=== PATIENT | male | born 1945 | race Caucasian/White ===

== ENCOUNTER 2024-03-02 06:44 | Inpatient (IN) ==
--- NOTE | 2024-03-02 07:16 | Emergency Department Note ---
ED Provider Note History of Present Illness Chief Complaint: Abdominal Pain Stated Complaint: ABD PAIN Time Seen by Provider: 03/02/24 06:58 Source: patient Mode of arrival: ambulatory Limitations: no limitations This patient is a 78-year-old male who presents emergency department for evaluation of abdominal pain. Patient is from [place] and is in the area with friends hunting. He states that he woke up 3 hours ago due to pain in the right lower abdomen. Pain came on fairly suddenly and woke him up from sleep. He states pain is now more generalized throughout the abdomen. Pain is worse with movements. Rates his current discomfort a 9/10. Denies fevers but reports some chills. He had 1 small episode of diarrhea this morning and has had some nausea and dry heaving. He denies any vomiting, chest pain, urinary symptoms. He states that he felt okay when he went to bed last night. Denies any pain over the past few days. Denies any prior episodes of similar symptoms. 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 Home Medications Medication Instructions Recorded Confirmed Type allopurinol 300 mg tablet 300 mg PO QAM 03/02/24 03/02/24 History amlodipine 10 mg tablet 10 mg PO HS 03/02/24 03/02/24 History clopidogrel 75 mg tablet (Plavix) 75 mg PO QAM 03/02/24 03/02/24 History losartan 100 mg tablet 100 mg PO QAM 03/02/24 03/02/24 History rosuvastatin 5 mg tablet 5 mg PO [id number] 03/02/24 03/02/24 History Allergies Allergy/AdvReac Type Severity Reaction Status Date / Time No Known Allergies Allergy Unverified 03/02/24 08:12 Past Med/Surg History Problem List (Updated 03/02/24 @ 09:49 by Ryan Gonzalez DO) Chronic renal failure (CRF), stage 3a Paroxysmal atrial fibrillation Sinus bradycardia, chronic Small bowel obstruction due to postoperative adhesions Hypertension Presence of Watchman left atrial appendage closure device Medical History Multiple renal calculi Benign tumor of kidney Surgical History History of ureteroscopy History of lithotripsy History of right nephrectomy Social History (Reviewed 03/02/24 @ 09:46 by BRIA Stock Smoking Status: Never smoker Preferred Language: Japanese Feels Safe at Home: Yes Physical Exam Vital Signs Vital Signs - 24 hr 03/02/24 06:48 03/02/24 07:08 03/02/24 07:20 Temperature 36.5 C Temperature Source Temporal Artery Scan Pulse Rate 58 L 52 L Pulse Rate [Apical] Pulse Rate from SpO2 Sensor 50 L Pulse Rhythm Regular Pulse Rhythm [Apical] Pulse Strength Normal Respiratory Rate 18 12 Respiratory Effort / Characteristics Non-Labored Spontaneous Respiratory Depth Normal Respiratory Pattern Regular Blood Pressure 172/87 H 160/86 H Blood Pressure [Left Arm] Blood Pressure Mean 115 110 Blood Pressure Mean [Left Arm] Blood Pressure Position Sitting Blood Pressure Position [Left Arm] Pulse Oximetry 98 96 Oxygen Delivery Method Room Air Room Air Oxygen Flow Rate Sepsis Recent Fever Within 48 Hours No Sepsis New/Unexplained Change in Mental Status No Sepsis Action Taken by Nursing No Action Required 03/02/24 07:25 03/02/24 07:30 03/02/24 08:00 Temperature Temperature Source Pulse Rate 54 L 60 57 L Pulse Rate [Apical] Pulse Rate from SpO2 Sensor 0 L Pulse Rhythm Regular Pulse Rhythm [Apical] Pulse Strength Respiratory Rate 16 12 15 Respiratory Effort / Characteristics Respiratory Depth Respiratory Pattern Blood Pressure 159/87 H 163/88 H Blood Pressure [Left Arm] Blood Pressure Mean 113 113 Blood Pressure Mean [Left Arm] Blood Pressure Position Blood Pressure Position [Left Arm] Pulse Oximetry 96 95 95 Oxygen Delivery Method Room Air Room Air Room Air Oxygen Flow Rate Sepsis Recent Fever Within 48 Hours Sepsis New/Unexplained Change in Mental Status Sepsis Action Taken by Nursing 03/02/24 08:30 03/02/24 09:00 03/02/24 09:33 Temperature 36.6 C Temperature Source Oral Pulse Rate 58 L 57 L 55 L Pulse Rate [Apical] Pulse Rate from SpO2 Sensor Pulse Rhythm Pulse Rhythm [Apical] Pulse Strength Respiratory Rate 13 16 14 Respiratory Effort / Characteristics Respiratory Depth Respiratory Pattern Blood Pressure 149/91 H 162/85 H 140/90 Blood Pressure [Left Arm] Blood Pressure Mean 133 126 Blood Pressure Mean [Left Arm] Blood Pressure Position Blood Pressure Position [Left Arm] Pulse Oximetry 92 94 92 Oxygen Delivery Method Room Air Room Air Room Air Oxygen Flow Rate Sepsis Recent Fever Within 48 Hours Sepsis New/Unexplained Change in Mental Status Sepsis Action Taken by Nursing 03/02/24 10:44 03/02/24 10:50 03/02/24 11:00 Temperature 36.3 C L Temperature Source Temporal Artery Scan Pulse Rate Pulse Rate [Apical] 69 67 62 Pulse Rate from SpO2 Sensor Pulse Rhythm Pulse Rhythm [Apical] Regular Regular Regular Pulse Strength Respiratory Rate 14 21 14 Respiratory Effort / Characteristics Non-Labored Spontaneous Non-Labored Spontaneous Non-Labored Spontaneous Respiratory Depth Normal Normal Normal Respiratory Pattern Regular Regular Regular Blood Pressure Blood Pressure [Left Arm] 131/93 160/94 H 161/87 H Blood Pressure Mean Blood Pressure Mean [Left Arm] 105 116 111 Blood Pressure Position Blood Pressure Position [Left Arm] Semi-fowlers Semi-fowlers Semi-fowlers Pulse Oximetry 97 97 95 Oxygen Delivery Method Oxymask Oxymask Oxymask Oxygen Flow Rate 9 9 5 Sepsis Recent Fever Within 48 Hours Sepsis New/Unexplained Change in Mental Status Sepsis Action Taken by Nursing 03/02/24 11:10 03/02/24 11:20 Temperature Temperature Source Pulse Rate Pulse Rate [Apical] 68 64 Pulse Rate from SpO2 Sensor Pulse Rhythm Pulse Rhythm [Apical] Regular Regular Pulse Strength Respiratory Rate 15 14 Respiratory Effort / Characteristics Non-Labored Spontaneous Non-Labored Spontaneous Respiratory Depth Normal Normal Respiratory Pattern Regular Regular Blood Pressure Blood Pressure [Left Arm] 169/80 H 144/82 H Blood Pressure Mean Blood Pressure Mean [Left Arm] 109 102 Blood Pressure Position Blood Pressure Position [Left Arm] Semi-fowlers Semi-fowlers Pulse Oximetry 94 93 Oxygen Delivery Method Oxymask Nasal Cannula Oxygen Flow Rate 5 2 Sepsis Recent Fever Within 48 Hours Sepsis New/Unexplained Change in Mental Status Sepsis Action Taken by Nursing VITALS: Vitals are noted on the nurse's note and reviewed by myself. GENERAL: This is a 78-year-old male, uncomfortable appearing, slightly tremulous. SKIN: The skin was without rashes. EYES: No scleral icterus MOUTH: Mucous membranes moist. HEART: Regular rate and rhythm without murmurs gallops or rubs. LUNGS: Clear to auscultation bilaterally without wheezes, rales or rhonchi. ABDOMEN: Positive bowel sounds x 4. Moderate tenderness throughout the abdomen, most pronounced in the right lower quadrant with positive guarding. NEURO: Patient was alert and oriented. Course Consultations Consultation #1: Dr. Oglesby - general surgery General surgery was consulted and will evaluate the patient. He did request that I also consult the hospitalist service for admission. Time: 08:22 Consultation #2: Dr. Evaristo Pierson Hospitalist Hospitalist service was consulted for admission at the request of the general surgeon. Time: 08:35 Administered Medications Droperidol (Droperidol 5 Mg/2 Ml Vial) 0.625 mg IV ONCE PRN PRN Reason: PACU Use Only for Nausea Stop: 03/02/24 18:01 Last Admin: 03/02/24 11:02 Dose: 0.625 mg Documented By: TASH Discontinued Medications Bupivacaine HCl/Epinephrine Bitart (Bupivacaine/Epinephrine 0.5% Mpf 1:200,000 30 Ml Vial) Confirm Administered Dose 30 ml .ROUTE .STEcopol-MED ONE Stop: 03/02/24 10:19 Last Admin: 03/02/24 10:35 Dose: 30 ml Documented By: THIEN Hydromorphone HCl (Hydromorphone Inj 0.5 Mg/0.5 Ml Syr) 0.5 mg IV NOW STA Stop: 03/02/24 07:56 Last Admin: 03/02/24 08:00 Dose: 0.5 mg Documented By: TAIWO Hydromorphone HCl (Hydromorphone Inj 0.5 Mg/0.5 Ml Syr) 0.5 mg IV NOW STA Stop: 03/02/24 09:12 Last Admin: 03/02/24 09:16 Dose: 0.5 mg Documented By: TAIWO Hydromorphone HCl (Hydromorphone Inj 1 Mg/Ml Syringe) 0.25 mg IV Q5M PRN PRN Reason: PACU Use Only-Pain Stop: 03/02/24 18:01 Last Admin: 03/02/24 11:17 Dose: 0.25 mg Documented By: Admin: 03/02/24 11:12 Dose: 0.25 mg Documented By: Admin: 03/02/24 11:00 Dose: 0.25 mg Documented By: Admin: 03/02/24 10:52 Dose: 0.25 mg Documented By: TASH Hydromorphone HCl (Hydromorphone Inj 1 Mg/Ml Syringe) Confirm Administered Dose 1 mg .ROUTE .STK-MED ONE Stop: 03/02/24 10:52 Last Admin: 03/02/24 10:54 Dose: Not Given Documented By: TASH Sodium Chloride (Nss) 500 mls @ 999 mls/hr IV .Q31M ONE Stop: 03/02/24 07:42 Last Infusion: 03/02/24 08:01 Dose: Infused Documented By: Admin: 03/02/24 07:22 Dose: 999 mls/hr Documented By: TAIWO Cefazolin Sodium (Ancef 2000mg) 2,000 mg in 15 mls @ 3.75 mls/min IV PREOP ONE; Protocol Stop: 03/02/24 10:17 Last Admin: 03/02/24 10:16 Dose: 3.75 mls/min Documented By: THIEN Morphine Sulfate (Morphine Sulfate 10 Mg/Ml Carp/Vial) 6 mg IV NOW STA Stop: 03/02/24 07:13 Last Admin: 03/02/24 07:21 Dose: 6 mg Documented By: TIAWO Ondansetron HCl (Ondansetron Inj 2 Mg/Ml 2 Ml Vial) 4 mg IV NOW STA Stop: 03/02/24 07:13 Last Admin: 03/02/24 07:21 Dose: 4 mg Documented By: TAIWO Ondansetron HCl (Ondansetron Inj 2 Mg/Ml 2 Ml Vial) 4 mg IV NOW STA Stop: 03/02/24 10:57 Last Admin: 03/02/24 11:04 Dose: Not Given Documented By: TASH Ondansetron HCl (Ondansetron Inj 2 Mg/Ml 2 Ml Vial) Confirm Administered Dose 4 mg .ROUTE .STK-MED ONE Stop: 03/02/24 10:58 Last Admin: 03/02/24 10:58 Dose: Not Given Documented By: TASH Medical Decision Making Differential Diagnosis Appendicitis, testicular torsion, infections, diverticulitis, UTI, obstruction, mesenteric ischemia, aortic pathology, inflammatory bowel disease, renal colic, PUD, pancreatitis, biliary pathology, hernia, volvulus, constipation, as well as other pathologies. Laboratory Data Attestation: I reviewed the patient's lab results. 03/02/24 07:03 03/02/24 07:03 Lab Results 03/02/24 03/02/24 Range/Units 07:03 07:57 WBC 8.21 (4.8-10.8) K/ul RBC 5.42 (4.70-6.10) M/uL Hgb 16.3 (14.0-18.0) g/dl Hct 48.1 (42.0-52.0) % MCV 88.7 (80.0-100.0) fL MCH 30.1 (25.0-34.0) pg MCHC 33.9 (32.0-36.0) g/dL RDW Std Deviation 46.1 (36.4-46.3) fL RDW Coeff of Sushil 14.3 (11.5-14.5) % Plt Count 205 (130-400) K/uL MPV 11.2 (9.4-12.4) fL Immature Gran % (Auto) 0.2 % Neut % (Auto) 75.9 % Lymph % (Auto) 16.0 % [place] % (Auto) 6.0 % Eos % (Auto) 1.3 % Baso % (Auto) 0.6 % Neut # (Auto) 6.23 (1.40-6.50) K/uL Lymph # (Auto) 1.31 (1.20-3.40) K/uL [place] # (Auto) 0.49 (0.11-0.59) K/uL Eos # (Auto) 0.11 (0.00-0.50) K/uL Baso # (Auto) 0.05 (0.00-0.20) K/uL Immature Gran # (Auto) 0.02 (0.01-0.20) K/uL Sodium 138 (136-145) mmol/L Potassium 3.9 (3.5-5.1) mmol/L Chloride 105 (98-107) mmol/L Carbon Dioxide 23 (21-32) mmol/L Anion Gap 10 (3-11) BUN 23 (6-23) mg/dl Creatinine 1.48 H (0.6-1.4) mg/dl Est Cr Clr Drug Dosing 52.4 ml/min Est GFR ( Amer) 52.5 ml/min Est GFR (Non-Af Amer) 45.3 ml/min BUN/Creatinine Ratio 15.5 (10-20) Glucose 122 H (70-99(Fasting)) mg/dl Lactate 1.3 (0.4-2.0) mmol/L Calcium 10.6 H (8.6-10.3) mg/dl Total Bilirubin 0.8 (0.2-1.0) mg/dl AST 21 (13-39) U/L ALT 20 (7-52) U/L Alkaline Phosphatase 106 H (34-104) U/L Total Protein 7.9 (6.0-8.3) gm/dl Albumin 4.7 (3.4-5.0) gm/dl Globulin 3.2 (2.5-4.0) gm/dl Albumin/Globulin Ratio 1.5 (0.9-2) Lipase 8 L (11-82) U/L Imaging Data Attestation: I personally reviewed and interpreted this imaging study as follows: Radiologist's Impression: Abdomen/Pelvis CT 03/02/24 07:[address] WITHOUT CONTRAST CT DOSE: 1391.42 mGy.cm HISTORY: Acute right lower quadrant abdominal pain rlq and generalized abd pain (solitary kidney) TECHNIQUE: Multiaxial CT images of the abdomen and pelvis were performed without contrast. A dose lowering technique was utilized adhering to the principles of ALARA. COMPARISON STUDY: None. FINDINGS: No acute lower thoracic abnormality. Mild bibasilar atelectasis versus scarring. There is no free air. The unenhanced spleen, pancreas, gallbladder and adrenal glands are unremarkable. Scattered hepatic cysts measure up to approximately 3 cm within the right hepatic lobe. Additional subcentimeter hepatic hypodensities are too small to characterize. Postoperative changes within the right retroperitoneum compatible with prior nephrectomy. Compensatory hypertrophy of the left kidney. Left-sided perinephric stranding with parenchymal and renal sinus cysts. No renal or ureteral calculi or hydronephrosis. Compressed draining bladder with wall thickening. Prostatomegaly small fat filled inguinal hernias are noted. No abdominal aortic aneurysm or lymphadenopathy. Colonic diverticulosis. Dilated inflamed loops of ileum within the abdominal right lower quadrant measure up to approximately 3.7 cm, demonstrating areas of circumferential wall thickening with intraluminal edema and trace ascites. There are at least 2 sites of transitioning decompressed small bowel with mild twisting of the mesentery. There is an adjacent fat filled right lateral abdominal wall hernia on image 198 with diastases of 11 mm. No bowel extension into the hernia sac. The appendix is not clearly identified. No acute fracture. IMPRESSION: 1. There are a few dilated inflamed loops of ileum within the right lower quadrant with two apparent transition points. Findings are suspicious for an internal hernia with possible closed-loop obstruction. Surgical consultation is needed. 2. No pneumatosis or pneumoperitoneum. 3. Right nephrectomy. 4. Additional findings as above. ACT 112: Negative or not required by law. The above report was generated using voice recognition software. It may contain grammatical, syntax or spelling errors. Electronically signed by: Atif Funes M.D. 03/02/2024 8:18 AM ECG Data Attestation: I personally reviewed and interpreted this ECG as follows: Indication: + abdominal pain Rate (beats per minute): 49 Rhythm: + sinus bradycardia ECG ST segments: + Normal ST segments ECG Findings: + Other (low voltage QRS) MDM Narrative Continuous cardiac cath tech: Order was placed for continuous cardiac cath tech. Patient was placed on the cardiac cath tech. Patient was noted to be in sinus bradycardia at an initial rate of 52 bpm. The patient is a 78-year-old male who presents today complaining of abdominal pain. Labs revealed no leukocytosis. Creatinine 1.48, patient states this is near his baseline as he has had a right nephrectomy. CT scan was performed without contrast due to renal concerns. This was reviewed by radiology and shows evidence of an internal hernia with possible closed-loop obstruction. I consulted general surgery who agreed to evaluate the patient. They did request that I also speak with medicine for admission. [facility] Patient treated with a 500 mL saline bolus, morphine, Zofran and Dilaudid with improvement. On reassessment he was feeling quite a bit better although still having some pain. Vital signs stable throughout emergency department stay. Patient taken to the OR for operative management by general surgery. Discharge Plan Visit Data Chief Complaint: Abdominal Pain Stated Complaint: ABD PAIN ED Provider: Carie Horan ED Midlevel Provider: Jade Park Discharge Instructions Interventions: ED Discharge Assessment Last Done: 03/02/24 09:33
[2024-03-02] MEDS: ONDANSETRON INJ 2 MG/ML 2 ML VIAL IV STA ×2 (07:21→11:04)
[2024-03-02] MEDS: MoRPHine SULFATE 10 MG/ML CARP/VIAL IV STA (07:21)
[2024-03-02] MEDS: SODIUM CHLORIDE 0.9% 500 ML IV ONE (07:22)
[2024-03-02 07:47] LABS: Albumin Globulin Ratio 1.5 (0.9-2); Albumin Level 4.7 gm/dl (3.4-5.0); BUN Creatinine Ratio 15.5 (10-20); Bilirubin,Total 0.8 mg/dl (0.2-1.0); Calcium 10.6 mg/dl (8.6-10.3); Creatinine Clr Calc Pharmacy 52.4 ml/min; Est GFR (African American) 52.5 ml/min; Est GFR (Non-African American) 45.3 ml/min; Globulin 3.2 gm/dl (2.5-4.0); Potassium 3.9 mmol/L (3.5-5.1); Total Protein 7.9 gm/dl (6.0-8.3)
[2024-03-02 07:52] LABS: Basophils # (auto) 0.05 K/uL (0.00-0.20); Basophils % (auto) 0.6 %; Eosinophils # (auto) 0.11 K/uL (0.00-0.50); Eosinophils % (auto) 1.3 %; Hematocrit (blood only) 48.1 % (42.0-52.0); Hemoglobin 16.3 g/dl (14.0-18.0); Immature Granulocytes # (auto) 0.02 K/uL (0.01-0.20); Immature Granulocytes % (auto) 0.2 %; Lymphocytes # (auto) 1.31 K/uL (1.20-3.40); Mean Corpuscular Hemoglobin 30.1 pg (25.0-34.0); Mean Corpuscular Hgb Conc 33.9 g/dL (32.0-36.0); Mean Corpuscular Volume 88.7 fL (80.0-100.0); Mean Platelet Volume 11.2 fL (9.4-12.4); Monocytes # (auto) 0.49 K/uL (0.11-0.59); Neutrophils # (auto) 6.23 K/uL (1.40-6.50); Neutrophils % (auto) 75.9 %; Platelet Count 205 K/uL (130-400); RDW Coefficient of Variation 14.3 % (11.5-14.5); RDW Standard Deviation 46.1 fL (36.4-46.3); Red Blood Count 5.42 M/uL (4.70-6.10); White Blood Count 8.21 K/ul (4.8-10.8)
[2024-03-02] MEDS: HYDROmorphone INJ 0.5 MG/0.5 ML SYR IV STA ×2 (08:00→09:16)
--- NOTE | 2024-03-02 08:20 | CT Scan Report ---
ABDOMEN AND PELVIS CT WITHOUT CONTRAST CT DOSE: 1391.42 mGy.cm HISTORY: Acute right lower quadrant abdominal pain rlq and generalized abd pain (solitary kidney) TECHNIQUE: Multiaxial CT images of the abdomen and pelvis were performed without contrast. A dose lo wering technique was utilized adhering to the principles of ALARA. COMPARISON STUDY: None. FINDINGS: No acute lower thoracic abnormality. Mild bibasilar atelectasis versus scarring. There is n o free air. The unenhanced spleen, pancreas, gallbladder and adrenal glands are unremarkable. Scatter ed hepatic cysts measure up to approximately 3 cm within the right hepatic lobe. Additional subcentim eter hepatic hypodensities are too small to characterize. Postoperative changes within the right retroperitoneum compatible with prior nephrectomy. Roller y hypertrophy of the left kidney. Left-sided perinephric stranding with parenchymal and renal sinus c ysts. No renal or ureteral calculi or hydronephrosis. Compressed draining bladder with wall thickenin g. Prostatomegaly small fat filled inguinal hernias are noted. No abdominal aortic aneurysm or lympha denopathy. Colonic diverticulosis. Dilated inflamed loops of ileum within the abdominal right lower quadrant lacy sure up to approximately 3.7 cm, demonstrating areas of circumferential wall thickening with intralum inal edema and trace ascites. There are at least 2 sites of transitioning decompressed small bowel wi th mild twisting of the mesentery. There is an adjacent fat filled right lateral abdominal wall herni a on image 198 with diastases of 11 mm. No bowel extension into the hernia sac. The appendix is not c learly identified. No acute fracture. IMPRESSION: 1. There are a few dilated inflamed loops of ileum within the right lower quadrant with two apparent transition points. Findings are suspicious for an internal hernia with possible closed-loop obstructi on. Surgical consultation is needed. 2. No pneumatosis or pneumoperitoneum. 3. Right nephrectomy. 4. Additional findings as above. ACT 112: Negative or not required by law. The above report was generated using voice recognition software. It may contain grammatical, syntax o r spelling errors. Electronically signed by: Atif Funes M.D. 03/02/2024 8:18 AM
--- NOTE | 2024-03-02 08:41 | Emergency Department Note ---
ED Visit Note I have personally seen and evaluated the patient with the PA. I agree with the diagnosis and management decisions and have been personally involved in the case. CT findings and plan for surgical consultation and admission to the hospital were agreed upon. Please see Jade Park PA-C's notes for further details of the history, physical and visit. .
--- NOTE | 2024-03-02 08:51 | Anesthesiology Consultation ---
Date of Service March 02, 2024 Assessment & Plan Chart Review Chart Review: Acceptable Risk for Surgery and Patient NOT seen in Pre Admission Testing Consults Requested none History Surgery Operation Date: 03/02/24 09:00 Proposed Procedures p Exploratory Laparotomy - Jonathan Oglesby MD Height/Weight Height: 5 ft 11 in Weight: 105 kg Allergies Allergy/AdvReac Type Severity Reaction Status Date / Time No Known Allergies Allergy Unverified 03/02/24 08:12 Medications Home Medications Medication Instructions Recorded Confirmed Last Taken allopurinol 300 mg tablet 300 mg PO QAM 03/02/24 03/02/24 03/01/24 amlodipine 10 mg tablet 10 mg PO HS 03/02/24 03/02/24 03/01/24 clopidogrel 75 mg tablet (Plavix) 75 mg PO QAM 03/02/24 03/02/24 03/01/24 losartan 100 mg tablet 100 mg PO QAM 03/02/24 03/02/24 03/01/24 rosuvastatin 5 mg tablet 5 mg PO [id number] 03/02/24 03/02/24 03/01/24 Past Medical History Medical History History of atrial fibrillation Past Surgical History Surgical History History of right nephrectomy Social History Smoking Status: Never smoker Physical Exam Vital Signs Last Vital Signs Temp 36.5 C 03/02/24 06:48 Pulse 58 L 03/02/24 08:30 Resp 13 03/02/24 08:30 BP 149/91 H 03/02/24 08:30 Pulse Ox 92 03/02/24 08:30 O2 Del Method Room Air 03/02/24 08:30 Testing Laboratory Results 03/02/24 07:03 03/02/24 07:03
--- NOTE | 2024-03-02 09:09 | Surgery Consultation ---
Date of Consultation March 02, 2024 Assessment & Plan (1) Small bowel obstruction due to postoperative adhesions: closed loop obstruction significant RLQ tenderness IV abx IVF will take to the OR and plan to do exploratory laparotomy with lysis of adhesions and possible bowel obstruction and possible ostomy patient understands all the risks and wishes to proceed Present on Admission?: Yes History of Present Illness History of Present Illness This is a 78YO male who came to ED with RLQ abdominal pain. The pain woke him early this AM. He denies fevers but reports some chills. He had 1 small episode of diarrhea this morning and has had some nausea and dry heaving. He denies any vomiting, chest pain, urinary symptoms. He has never had similar episode in past, he has a right nephrectomy due to a benign mass, initially a robotic case converted to open via a right flank incision. A CT scan shows a closed loop obstruction without signs of ischemia yet. Allergies Allergy/AdvReac Type Severity Reaction Status Date / Time No Known Allergies Allergy Unverified 03/02/24 08:12 Home Medications Medication Instructions Recorded Confirmed Type allopurinol 300 mg tablet 300 mg PO QAM 03/02/24 03/02/24 History amlodipine 10 mg tablet 10 mg PO HS 03/02/24 03/02/24 History clopidogrel 75 mg tablet (Plavix) 75 mg PO QAM 03/02/24 03/02/24 History losartan 100 mg tablet 100 mg PO QAM 03/02/24 03/02/24 History rosuvastatin 5 mg tablet 5 mg PO 3XWK 03/02/24 03/02/24 History Patient History Medical History History of atrial fibrillation Surgical History History of right nephrectomy Social History Smoking Status: Never smoker Preferred Language: Venezuelan Feels Safe at Home: Yes Review of Systems Constitutional: + chills and + anorexia; no fever Eyes: no problem reported Ear, Nose, Mouth, Throat: no problem reported Respiratory: no cough and no dyspnea Cardiovascular: no chest pain Gastrointestinal: + abdominal pain, + nausea and + diarrhe a/loose stools; no vomiting Genitourinary: no dysuria Musculoskeletal: no problem reported Integumentary: no problem reported Neurologic: no localized weakness and no generalized weakness Psychiatric: no behavioral changes Endocrine: no fatigue Hematologic / Lymphatic: + easy bleeding and + easy bruising Physical Exam Constitutional: WD/WN, vitals as above Eyes: PERRL, conjunctivae normal, anicteric sclerae ENMT: external ear and nose normal, oropharynx normal Neck: trachea midline Respiratory: normal respiratory effort, lungs clear to auscultation Cardiovascular: RRR, no murmur, no edema Gastrointestinal (Abdomen): Inspection/Auscultation: abdomen normal to inspection, normal bowel sounds and + abdominal surgical scar; abdomen not distended Percussion/Palpation: + abdomen tender, + guarding and abdomen soft; abdomen not rigid Musculoskeletal: Head/Neck/Chest: normocephalic and head atraumatic Skin: no rashes, warm and dry Results & Data Vital Signs (Past 12 Hours) Vital Signs Temp Pulse Resp BP Pulse Ox O2 Del Method 03/02/24 08:30 58 L 13 149/91 H 92 Room Air 03/02/24 08:00 57 L 15 163/88 H 95 Room Air 03/02/24 07:30 60 12 159/87 H 95 Room Air 03/02/24 07:25 54 L 16 96 Room Air 03/02/24 07:20 12 160/86 H 96 Room Air 03/02/24 07:08 52 L 03/02/24 06:48 36.5 C 58 L 18 172/87 H 98 Room Air Diagnostic Findings ABDOMEN AND PELVIS CT WITHOUT CONTRAST CT DOSE: 1391.42 mGy.cm HISTORY: Acute right lower quadrant abdominal pain rlq and generalized abd pain (solitary kidney) TECHNIQUE: Multiaxial CT images of the abdomen and pelvis were performed without contrast. A dose lowering technique was utilized adhering to the principles of ALARA. COMPARISON STUDY: None. FINDINGS: No acute lower thoracic abnormality. Mild bibasilar atelectasis versus scarring. There is no free air. The unenhanced spleen, pancreas, gallbladder and adrenal glands are unremarkable. Scattered hepatic cysts measure up to approximately 3 cm within the right hepatic lobe. Additional subcentimeter hepatic hypodensities are too small to characterize. Postoperative changes within the right retroperitoneum compatible with prior nephrectomy. Compensatory hypertrophy of the left kidney. Left-sided perinephric stranding with parenchymal and renal sinus cysts. No renal or ureteral calculi or hydronephrosis. Compressed draining bladder with wall thickening. Prostatomegaly small fat filled inguinal hernias are noted. No abdominal aortic aneurysm or lymphadenopathy. Colonic diverticulosis. Dilated inflamed loops of ileum within the abdominal right lower quadrant measure up to approximately 3.7 cm, demonstrating areas of circumferential wall thickening with intraluminal edema and trace ascites. There are at least 2 sites of transitioning decompressed small bowel with mild twisting of the mesentery. There is an adjacent fat filled right lateral abdominal wall hernia on image 198 with diastases of 11 mm. No bowel extension into the hernia sac. The appendix is not clearly identified. No acute fracture. IMPRESSION: 1. There are a few dilated inflamed loops of ileum within the right lower quadrant with two apparent transition points. Findings are suspicious for an internal hernia with possible closed-loop obstruction. Surgical consultation is needed. 2. No pneumatosis or pneumoperitoneum. 3. Right nephrectomy. 4. Additional findings as above.
[2024-03-02] MEDS ORDERED: fentaNYL citrate PF 100 MCG/2 ML VIAL ONE (09:24)
[2024-03-02] MEDS ORDERED: LIDOCAINE 2% 2 ML VIAL/AMP(20MG/ML) INFIL ONE (09:24)
[2024-03-02] MEDS ORDERED: DEXAMETHASONE SOD INJ 4 MG/ML VIAL ONE (09:24)
[2024-03-02] MEDS ORDERED: ONDANSETRON INJ 2 MG/ML 2 ML VIAL ONE (09:24)
[2024-03-02] MEDS ORDERED: PROPOFOL IV EMULSION 10 MG/ML 20 ML VIAL IV ONE (09:24)
[2024-03-02] MEDS ORDERED: GLYCOPYRROLATE 0.2 MG/ML VIAL ONE (09:24)
[2024-03-02] MEDS ORDERED: ROCURONIUM BROMIDE 10 MG/ML 5 ML VIAL IV ONE (09:24)
[2024-03-02] MEDS ORDERED: NEOSTIGMINE METHYLSULFATE 1 MG/ML 10ML VIAL ONE (09:24)
[2024-03-02] MEDS ORDERED: MIDAZOLAM HCL 1 MG/ML 2ML VIAL ONE (09:25)
[2024-03-02] MEDS ORDERED: HYDROmorphone INJ 0.5 MG/0.5 ML SYR IV PRN (09:30)
--- NOTE | 2024-03-02 09:55 | History & Physical Report ---
Date of Service March 02, 2024 Assessment & Plan (1) Small bowel obstruction due to postoperative adhesions: (2) Sinus bradycardia, chronic: (3) Paroxysmal atrial fibrillation: (4) Chronic renal failure (CRF), stage 3a: (5) Presence of Watchman left atrial appendage closure device: (6) Hypertension: Plan Patient is a 78-year-old gentleman with history of paroxysmal atrial fibrillation not on anticoagulation but does have a Watchman device with a history of chronic sinus bradycardia and hypertension presents to the emergency room with acute abdominal pain and imaging consistent with a small bowel obstruction. Patient is critically ill. With potential to areas of obstruction any high risk for possible ischemic bowel. Patient needs hospital level care including consultation and IV fluids and medications Admit to a monitored unit, maintain on telemetry, patient has a history of paroxysmal atrial fibrillation. With stress of illness and surgery will need to monitor for breakthrough. IV fluid resuscitation, maintain n.p.o. Consult surgery for possible surgical intervention today Pain control Continue home medications as prescribed Hold Plavix in anticipation of probable surgical intervention Monitor electrolytes renal function and CBC Patient is medically maximized to undergo anticipated surgical intervention for small bowel obstruction History of Present Illness Chief Complaint: Abdominal pain and nausea Primary Care Provider: NO PCP Patient 78-year-old gentleman visiting the area from [place] for hunting trip. Went to bed last evening feeling well woke up early this morning with severe abdominal pain some nausea and even some diarrhea. Due to his severe pain and came to the emergency room for evaluation. In the emergency room laboratory workup was essentially at his reported baseline. Imaging was consistent with a small bowel obstruction with 2 transition's points. Imaging was reviewed with surgery who recommended that patient may need more immediate surgical intervention. I was requested to the hospital medicine group to see the patient preoperatively to help coordinate admission and evaluate his medical history. At time of my evaluation the patient's pain is fairly well-controlled. He denies any chest pain or shortness of breath. He does have a history of paroxysmal atrial fibrillation for which a Watchman device was placed. He is not on any controlling medication. He reports that his atrial fibrillation is very intermittent and brief. He has chronic sinus bradycardia as his baseline and is asymptomatic. Prior to this morning he denies any fever or chills, no chest pain or shortness of breath, no abdominal pain. He does report that he has had issues with his bowels ever since his nephrectomy. He states that often times seems as though he has to have 2 bowel movements in the morning and has to, lie on each side, have his bowels work the stool through. He is not on any regular bowel regimen. He has never had a small bowel obstruction before. He does have a significant history of multiple renal calculi. That has resolved after excision of a benign kidney mass which ended up him requiring a full total nephrectomy. He does have some chronic renal dysfunction but reports that overall his renal function is stable. Allergies Allergy/AdvReac Type Severity Reaction Status Date / Time No Known Allergies Allergy Unverified 03/02/24 08:12 Home Medications Medication Instructions Recorded Confirmed Type allopurinol 300 mg tablet 300 mg PO QAM 03/02/24 03/02/24 History amlodipine 10 mg tablet 10 mg PO HS 03/02/24 03/02/24 History clopidogrel 75 mg tablet (Plavix) 75 mg PO QAM 03/02/24 03/02/24 History losartan 100 mg tablet 100 mg PO QAM 03/02/24 03/02/24 History rosuvastatin 5 mg tablet 5 mg PO 3XWK 03/02/24 03/02/24 History Past Med/Surg History Problem List (Updated 03/02/24 @ 09:49 by Ryan Gonzalez DO) Chronic renal failure (CRF), stage 3a Paroxysmal atrial fibrillation Sinus bradycardia, chronic Small bowel obstruction due to postoperative adhesions Hypertension Presence of Watchman left atrial appendage closure device Medical History Multiple renal calculi Benign tumor of kidney Surgical History History of ureteroscopy History of lithotripsy History of right nephrectomy Social History Smoking Status: Never smoker Preferred Language: Mongolian Feels Safe at Home: Yes Review of Systems Review of Systems: Pertinent positive and negative review of systems as mentioned in the HPI Physical Exam Physical Exam: Constitutional: Alert, mildly ill in appearance, nontoxic HEENT: Mucous membranes moist. Sclera clear Neck: Soft, no adenopathy Lungs: Clear to auscultation, decreased, no wheezes rales or rhonchi CV: S1-S2, regular, bradycardic Abdomen: Diffusely tender, guarding in the right lower quadrant, no rigidity, distended, hypoactive, high-pitched bowel sounds, Extremities: No significant edema Musculoskeletal: No significant joint tenderness Neuro: No focal deficits Psych: Cooperative, normal mood Results & Data Results & Data Vital Signs (Past 12 Hours) Vital Signs Temp Pulse Resp BP Pulse Ox O2 Del Method 03/02/24 09:33 36.6 C 55 L 14 140/90 92 Room Air 03/02/24 09:00 57 L 16 162/85 H 94 Room Air 03/02/24 08:30 58 L 13 149/91 H 92 Room Air 03/02/24 08:00 57 L 15 163/88 H 95 Room Air 03/02/24 07:30 60 12 159/87 H 95 Room Air 03/02/24 07:25 54 L 16 96 Room Air 03/02/24 07:20 12 160/86 H 96 Room Air 03/02/24 07:08 52 L 03/02/24 06:48 36.5 C 58 L 18 172/87 H 98 Room Air Diagnostic Findings Reviewed imaging, laboratory and diagnostic studies. Pertinent findings as below. Reviewed his CT of the abdomen pelvis, small bowel obstruction with potentially 2 transition points Personally reviewed EKG, sinus bradycardia, no ST-T wave changes CBC within normal range Creatinine 1.48 Glucose 122, nonfasting Calcium 10.6 Communication with ED physician reviewing HPI Communication with surgical team Code Status & VTE Plan VTE Prophylaxis Plan VTE Prophylaxis will be ordered: Yes (6) Hypertension Hypertension type: primary hypertension Qualified Code(s): I10 - Essential (primary) hypertension
[2024-03-02] MEDS ORDERED: ePHEDrine sulfate 50 MG/ML AMP IV PRN (10:01)
[2024-03-02] MEDS ORDERED: ATROPINE SULFATE 0.1 MG/ML 10ML SYR IV PRN (10:01)
[2024-03-02] MEDS ORDERED: SUGAMMADEX SODIUM 200 MG/2 ML VIAL IV ONE ×2 (10:16)
[2024-03-02] MEDS: ceFAZolin 2000MG 2,000 MG/15 ML SYR IV ONE (10:16)
[2024-03-02] MEDS: BUPIVACAINE/EPINEPHRINE 0.5% MPF 1:200,000 30 ML VIAL ONE (10:35)
--- NOTE | 2024-03-02 10:38 | Operative Report ---
Post Operative Report Pre & Post Diagnosis Operation Date: 03/02/24 09:00 Pre-Op Diagnosis: Closed loop obstruction secondary to post-op adhesion Post-Op Diagnosis: Closed loop obstruction secondary to post-op adhesion I identified the patient and participated in the time-out.: Yes Procedure Operation Date: 03/02/24 09:00 Actual Procedures p Exploratory Laparotomy, Reduction of closed loop obstruction, Lysis of adhesions(Not Applicable) - Jonathan Oglesby MD Surgeon Jonathan Oglesby MD Pay Agent None Estimated Blood Loss 30 Findings Consistent with Post-Op Diagnosis Right lower quadrant causing a closed-loop small bowel obstruction. Small bowel was inflamed but no signs of necrosis. Specimens None Drains None Anesthesia Type General Complications None Indications This is a 78-year-old male who came to the ED this morning with acute abdominal pain. CT scan was done which showed a likely closed loop obstruction. His white count was normal and his vitals are stable but we recommended exploration secondary to a possible impending ischemia or necrosis. He understands all this and wished to proceed. Description of Procedure The patient was taken to the OR and underwent excellent general endotracheal anesthesia. They received antibiotics preoperatively. Their abdomen was then prepped and draped normal sterile fashion. A midline incision was made and dissection was taken down to identify the fascia. The fascia was excised in the midline. The peritoneal cavity was entered easily and some turbid fluid was seen in the right lower quadrant. Exploration was done and there was an obvious adhesive band causing the closed-loop obstruction. The band was identified and transected. The bowel was then brought up it appeared inflamed but there was no sign of ischemia or necrosis. There was some other adhesions in the right lower quadrant causing the appendix to be stuck in the RLQ, this was freed using sharp and blunt dissection. The ileocecal valve was identified and the bowel was run from the ileocecal valve to the ligament of Treitz with no adhesive bands and no sign no obstructive issues. The bowel itself was watched and became less inflamed and showed no signs of ischemia or necrosis. There was also adhesive band from his omentum down to his left lower quadrant which was excised using sh evelyne dissection. The abdomen was then irrigated out and suctioned to clear. Small bowel was once again run from ileocecal valve to ligament of Treitz with no bands or issues. Small bowel was replaced and the omentum was placed on top of the small bowel. The fascia was then closed with a running PDS suture. 0.5% Marcaine with epinephrine local was used to create a local field block. Melita used to close the skin. A sterile dressing was applied. Patient tolerated the procedure without complications. They will be extubated and sent to postop foe a period of observation and will be sent to the floor once criteria is met. I attest to the content of the Intraoperative Record and any orders documented therein. Any exceptions are noted below.
[2024-03-02] MEDS: HYDROmorphone INJ 1 MG/ML SYRINGE IV PRN (10:52)
[2024-03-02] MEDS: HYDROmorphone INJ 1 MG/ML SYRINGE ONE (10:54)
[2024-03-02] MEDS: ONDANSETRON INJ 2 MG/ML 2 ML VIAL ONE (10:58)
[2024-03-02] MEDS ORDERED: DROPERIDOL 5 MG/2 ML VIAL ONE (11:00)
[2024-03-02] MEDS: DROPERIDOL 5 MG/2 ML VIAL IV PRN (11:02)
--- NOTE | 2024-03-02 11:26 | Anesthesiology Progress Note ---
Date of Service March 02, 2024 Anesthesia Post Procedure Vital Signs Vital Signs: Temp Pulse Pulse Resp BP BP Pulse Ox 03/02/24 11:20 64 14 144/82 H 93 03/02/24 11:10 68 15 169/80 H 94 03/02/24 11:00 62 14 161/87 H 95 03/02/24 10:50 67 21 160/94 H 97 03/02/24 10:44 36.3 C L 69 14 131/93 97 03/02/24 09:33 36.6 C 55 L 14 140/90 92 03/02/24 09:00 57 L 16 162/85 H 94 03/02/24 08:30 58 L 13 149/91 H 92 03/02/24 08:00 57 L 15 163/88 H 95 03/02/24 07:30 60 12 159/87 H 95 03/02/24 07:25 54 L 16 96 03/02/24 07:20 12 160/86 H 96 03/02/24 07:08 52 L 03/02/24 06:48 36.5 C 58 L 18 172/87 H 98 O2 Del Method O2 Flow Rate 03/02/24 11:20 Nasal Cannula 2 03/02/24 11:10 Oxymask 5 03/02/24 11:00 Oxymask 5 03/02/24 10:50 Oxymask 9 03/02/24 10:44 Oxymask 9 03/02/24 09:33 Room Air 03/02/24 09:00 Room Air 03/02/24 08:30 Room Air 03/02/24 08:00 Room Air 03/02/24 07:30 Room Air 03/02/24 07:25 Room Air 03/02/24 07:20 Room Air 03/02/24 07:08 03/02/24 06:48 Room Air Pain Intensity Right Lower Abdomen: Pain Intensity: 8 Abdomen: Pain Intensity: 5 Transfer of Care Handoff Completed per policy Notes Mental Status: alert / awake / arousable Patient Amnestic to Procedure: Yes Nausea / Vomiting: adequately controlled Pain: adequately controlled Airway Patency, RR, SpO2: stable & adequate BP & HR: stable & adequate Hydration State: stable & adequate Anesthetic Complications: no major complications apparent
[2024-03-02] MEDS ORDERED: ACETAMINOPHEN 325 MG TAB PO PRN ×2 (11:40)
[2024-03-02] MEDS ORDERED: MoRPHine SULFATE 4 MG/ML 1 ML CARP\\VIAL IV PRN (11:40)
[2024-03-02] MEDS ORDERED: oxyCODONE/ACETAMINOPHEN 5mg/325mg TAB PO PRN ×2 (11:40)
[2024-03-02] MEDS ORDERED: MoRPHine SULFATE 2 MG/ML CARP IV PRN (11:40)
[2024-03-02] MEDS ORDERED: ONDANSETRON INJ 2 MG/ML 2 ML VIAL IV PRN ×2 (11:40)
[2024-03-02] MEDS: LACTATED RINGER'S 1,000 ML IV SCH ×2 (12:00→14:26)
[2024-03-02] MEDS: PIPER/TAZO 4.5g in D5W MINI-B 100 ML IV ONE (13:03)
[2024-03-02] MEDS: LOSARTAN POTASSIUM 50 MG TAB PO SCH (16:13)
[2024-03-02] MEDS: PIPERACILLIN/TAZOBACTAM 4.5 GM in DEXTROSE 5% MINI-B 100 ML IV SCH (18:38)
[2024-03-02] MEDS: amLODIPine BESYLATE 5 MG TAB PO SCH (22:13)
[2024-03-03 05:03] LABS: Hematocrit (blood only) 39.1 % (42.0-52.0); Hemoglobin 13.7 g/dl (14.0-18.0); Mean Corpuscular Hemoglobin 30.3 pg (25.0-34.0); Mean Corpuscular Volume 86.5 fL (80.0-100.0); Mean Platelet Volume 11.2 fL (9.4-12.4); Platelet Count 195 K/uL (130-400); RDW Standard Deviation 44.4 fL (36.4-46.3); Red Blood Count 4.52 M/uL (4.70-6.10)
[2024-03-03 05:19] LABS: Albumin Globulin Ratio 1.4 (0.9-2); Albumin Level 3.8 gm/dl (3.4-5.0); BUN Creatinine Ratio 16.2 (10-20); Bilirubin,Total 0.8 mg/dl (0.2-1.0); Calcium 9.7 mg/dl (8.6-10.3); Est GFR (African American) 58.2 ml/min; Est GFR (Non-African American) 50.2 ml/min; Globulin 2.7 gm/dl (2.5-4.0); Magnesium 1.6 mg/dl (1.7-2.4); Potassium 4.3 mmol/L (3.5-5.1); Total Protein 6.5 gm/dl (6.0-8.3)
[2024-03-03] MEDS: CLOPIDOGREL BISULFATE 75 MG TAB PO SCH (08:44)
[2024-03-03] MEDS: allopurinoL 300 MG TAB PO SCH (08:45)
--- NOTE | 2024-03-03 08:54 | Electrocardiogram Report ---
Test Reason : Blood Pressure : / mmHG Vent. Rate : 049 BPM Atrial Rate : 049 BPM P-R Int : 192 ms QRS Dur : 090 ms QT Int : 416 ms P-R-T Axes : 057 -11 034 degrees QTc Int : 375 ms Sinus bradycardia Low voltage QRS Poor R wave progression, consider anterior UT vs. lead placement vs. LVH Abnormal ECG No previous ECGs available Confirmed by Darrius Lim ([id number]) on 03/03/2024 8:54:13 AM Referred By: REFERRED SELF Confirmed By:Darrius Lim
--- NOTE | 2024-03-03 10:41 | Surgery Progress Note ---
Date of Service March 03, 2024 Assessment & Plan (1) Small bowel obstruction due to postoperative adhesions: Plan: POD #1 a little bowel function clears ambulate IVF good progress Admission and Anticipated Discharge Date Admission Date: March 02, 2024 Subjective pain controlled minimal flatus ambulkating Review of Systems Constitutional: no fever and no chills Respiratory: no dyspnea Cardiovascular: no chest pain Gastrointestinal: + abdominal pain and + change in bowel h abits; no nausea and no vomiting Genitourinary: no dysuria Neurologic: no localized weakness and no generalized weakness Physical Exam Constitutional: WD/WN, vitals as above Respiratory: normal respiratory effort, lungs clear to auscultation Cardiovascular: RRR, no murmur, no edema Gastrointestinal (Abdomen): Inspection/Auscultation: abdomen normal to inspection, + abdomen distended and normal bowel sounds Percussion/Palpation: + abdomen tender and abdomen soft; no guarding and abdomen not rigid Musculoskeletal: Head/Neck/Chest: normocephalic and head atraumatic Results & Data Vital Signs (Past 12 Hours) Vital Signs Temp Pulse Pulse Resp BP Pulse Ox O2 Del Method 03/03/24 07:27 37.0 C 63 18 133/83 93 Room Air 03/03/24 07:00 59 L 03/03/24 02:36 36.8 C 60 18 143/73 H 93 Room Air 03/03/24 00:57 61
[2024-03-03] MEDS: MAGNESIUM SULFATE / D5W 1 GM/100 ML BAG IV ONE (11:14)
--- NOTE | 2024-03-03 12:28 | Hospitalist Progress Note ---
Date of Service March 03, 2024 Assessment & Plan (1) Small bowel obstruction due to postoperative adhesions: Plan: Patient is a 78-year-old gentleman with history of paroxysmal atrial fibrillation not on anticoagulation but does have a Watchman device with a histo ry of chronic sinus bradycardia and hypertension presents to the emergency room with acute abdominal pain and imaging consistent with a small bowel obstruction. Small bowel obstruction due to postoperative adhesions S/P Exploratory Laparotomy, Reduction of closed loop obstruction, Lysis of adhesions by on 03/03/24 --CT ABD:There are a few dilated inflamed loops of ileum within the right lower quadrant with two apparent transition points. Findings are suspicious for an internal hernia with possible closed-loop obstruction. Surgical consultation is needed. No pneumatosis or pneumoperitoneum. Right nephrectomy. -- Continue IV fluids, pain control --Empirically on Zosyn Appreciate surgery input Continue wound care Clear liquid diet for today (2) Sinus bradycardia, chronic: Plan: Sinus bradycardia Monitor (3) Paroxysmal atrial fibrillation: Plan: S/P watchman's procedure Continue Plavix (4) Chronic renal failure (CRF), stage 3a: Plan: H/O solitary kidney Monitor renal function Avoid nephrotoxic agents as able (5) Presence of Watchman left atrial appendage closure device: Plan: As above (6) Hypertension: Plan: Continue amlodipine, losartan Monitor BP DVT Px: SCDs Ambulating CODE STATUS Full code Plan Patient is critically ill. With potential to areas of obstruction any high risk for possible ischemic bowel. Patient needs hospital level care including consultation and IV fluids and medications Admit to a monitored unit, maintain on telemetry, patient has a history of paroxysmal atrial fibrillation. With stress of illness and surgery will need to monitor for breakthrough. IV fluid resuscitation, maintain n.p.o. Consult surgery for possible surgical intervention today Pain control Continue home medications as prescribed Hold Plavix in anticipation of probable surgical intervention Monitor electrolytes renal function and CBC Admission and Anticipated Discharge Date Admission Date: March 02, 2024 Subjective Patient is seen and examined at bedside States feeling a lot better today Abdominal pain well-controlled Nausea resolved Tolerating current diet Denies any chest pain, dyspnea, dizziness No other complaints Review of Systems Review of Systems: All systems reviewed & are unremarkable except as noted in Subjective Physical Exam Physical Exam: Physical Exam: Vitals signs as noted above General Appearance:Moderately built and nourished, no apparent distress Head: normocephalic, Atraumatic Eyes: normal inspection, EOMI Neck: supple, Trachea midline Respiratory/Chest: Normal breath sounds, CTA, No accessory muscle use Cardiovascular: S1, S2, No murmur Abdomen/GI:Soft, Non tender, Bowel sounds present, +Surgical dressing Extremities/Musculoskeletal:normal inspection, Trace pedal edema Neurologic/Psych:AAOX3, grossly no focal neurological deficits Skin: normal color, warm Results & Data Results & Data Vital Signs (Past 12 Hours) Vital Signs Temp Pulse Pulse Resp BP Pulse Ox O2 Del Method 03/03/24 07:27 37.0 C 63 18 133/83 93 Room Air 03/03/24 07:00 59 L 03/03/24 02:36 36.8 C 60 18 143/73 H 93 Room Air 03/03/24 00:57 61 Laboratory Results Short CBC 03/03/24 Range/Units 04:30 WBC 13.60 H (4.8-10.8) K/ul Hgb 13.7 L (14.0-18.0) g/dl Hct 39.1 L (42.0-52.0) % Plt Count 195 (130-400) K/uL BMP 03/03/24 04:30 Sodium 135 L Potassium 4.3 Chloride 106 Carbon Dioxide 22 BUN 22 Creatinine 1.36 Glucose 133 H Calcium 9.7 Liver Function 03/03/24 Range/Units 04:30 Total Bilirubin 0.8 (0.2-1.0) mg/dl AST 16 (13-39) U/L ALT 13 (7-52) U/L Alkaline Phosphatase 83 (34-104) U/L Albumin 3.8 (3.4-5.0) gm/dl (6) Hypertension Hypertension type: primary hypertension Qualified Code(s): I10 - Essential (primary) hypertension
[2024-03-04 05:41] LABS: Hematocrit (blood only) 38.9 % (42.0-52.0); Hemoglobin 13.4 g/dl (14.0-18.0); Mean Corpuscular Hgb Conc 34.4 g/dL (32.0-36.0); Mean Corpuscular Volume 87.2 fL (80.0-100.0); Mean Platelet Volume 10.8 fL (9.4-12.4); Platelet Count 171 K/uL (130-400); RDW Coefficient of Variation 14.4 % (11.5-14.5); RDW Standard Deviation 45.9 fL (36.4-46.3); Red Blood Count 4.46 M/uL (4.70-6.10)
[2024-03-04 08:19] LABS: BUN Creatinine Ratio 13.6 (10-20); Calcium 9.7 mg/dl (8.6-10.3); Est GFR (African American) 52.9; Est GFR (Non-African American) 45.7; Magnesium 1.8 mg/dl (1.7-2.4); Potassium 3.9 mmol/L (3.5-5.1)
[2024-03-04] MEDS: ROSUVASTATIN CALCIUM 5 MG TAB PO SCH (08:41)
--- NOTE | 2024-03-04 08:59 | Surgery Progress Note ---
Date of Service March 04, 2024 Assessment & Plan (1) Small bowel obstruction due to postoperative adhesions: Plan: advance diet IVF down to 75 ambulate zosyn off tomorrow Admission and Anticipated Discharge Date Admission Date: March 02, 2024 Subjective taking po well ambulating pain controlled Review of Systems Constitutional: no fever and no chills Respiratory: no dyspnea Cardiovascular: no chest pain Gastrointestinal: + abdominal pain; no nausea and no vomit ing Genitourinary: no dysuria Neurologic: no localized weakness Psychiatric: no behavioral changes Physical Exam Constitutional: WD/WN, vitals as above Respiratory: normal respiratory effort, lungs clear to auscultation Cardiovascular: RRR, no murmur, no edema Gastrointestinal (Abdomen): Inspection/Auscultation: abdomen normal to inspection, normal bowel sounds and + abdominal surgical incision; abdomen not distended Percussion/Palpation: + abdomen tender and abdomen soft; no guarding and abdomen not rigid Musculoskeletal: Head/Neck/Chest: normocephalic and head atraumatic Skin: no rashes, warm and dry Results & Data Vital Signs (Past 12 Hours) Vital Signs Temp Pulse Pulse Resp BP Pulse Ox O2 Del Method 03/04/24 07:10 36.5 C 60 18 140/80 93 Room Air 03/04/24 07:00 64 03/04/24 02:12 36.9 C 57 L 18 143/81 H 92 Room Air 03/04/24 00:56 64 03/03/24 22:28 36.9 C 61 18 143/81 H 92 Room Air
--- NOTE | 2024-03-04 17:02 | Hospitalist Progress Note ---
Date of Service March 04, 2024 Assessment & Plan (1) Small bowel obstruction due to postoperative adhesions: Plan: Patient is a 78-year-old gentleman with history of paroxysmal atrial fibrillation not on anticoagulation but does have a Watchman device with a histo ry of chronic sinus bradycardia and hypertension presents to the emergency room with acute abdominal pain and imaging consistent with a small bowel obstruction. Small bowel obstruction due to postoperative adhesions S/P Exploratory Laparotomy, Reduction of closed loop obstruction, Lysis of adhesions by on 03/03/24 --CT ABD:There are a few dilated inflamed loops of ileum within the right lower quadrant with two apparent transition points. Findings are suspicious for an internal hernia with possible closed-loop obstruction. Surgical consultation is needed. No pneumatosis or pneumoperitoneum. Right nephrectomy. -- Continue IV fluids, pain control --Empirically on Zosyn Appreciate surgery input Continue wound care Advance to full liquid diet today Ambulating with no issues Plan to discontinue antibiotics tomorrow Surgery following (2) Sinus bradycardia, chronic: Plan: Sinus bradycardia Monitor (3) Paroxysmal atrial fibrillation: Plan: S/P watchman's procedure Continue Plavix (4) Chronic renal failure (CRF), stage 3a: Plan: H/O solitary kidney Monitor renal function Avoid nephrotoxic agents as able (5) Presence of Watchman left atrial appendage closure device: Plan: As above (6) Hypertension: Plan: Continue amlodipine, losartan Monitor BP DVT Px: SCDs Ambulating CODE STATUS Full code Admission and Anticipated Discharge Date Admission Date: March 02, 2024 Subjective Patient is seen and examined at bedside No significant abdominal pain today + Flatus, no BM today Tolerating current diet No other complaints Denies any chest pain, dyspnea, dizziness Review of Systems Review of Systems: All systems reviewed & are unremarkable except as noted in Subjective Physical Exam Physical Exam: Physical Exam: Vitals signs as noted above General Appearance:Moderately built and nourished, no apparent distress Head: normocephalic, Atraumatic Eyes: normal inspection, EOMI Neck: supple, Trachea midline Respiratory/Chest: Normal breath sounds, CTA, No accessory muscle use Cardiovascular: S1, S2, No murmur Abdomen/GI:Soft, Non tender, Bowel sounds present, +Surgical dressing Extremities/Musculoskeletal:normal inspection, Trace pedal edema Neurologic/Psych:AAOX3, grossly no focal neurological deficits Skin: normal color, warm Results & Data Results & Data Vital Signs (Past 12 Hours) Vital Signs Temp Pulse Pulse Resp BP Pulse Ox O2 Del Method 03/04/24 15:46 36.9 C 54 L 18 131/84 95 Room Air 03/04/24 11:30 36.7 C 50 L 18 146/85 H 94 Room Air 03/04/24 11:00 03/04/24 07:10 36.5 C 60 18 140/80 93 Room Air 03/04/24 07:00 64 O2 Del Method 03/04/24 15:46 03/04/24 11:30 03/04/24 11:00 Room Air 03/04/24 07:10 03/04/24 07:00 Laboratory Results Short CBC 03/04/24 Range/Units 05:18 WBC 9.60 (4.8-10.8) K/ul Hgb 13.4 L (14.0-18.0) g/dl Hct 38.9 L (42.0-52.0) % Plt Count 171 (130-400) K/uL BMP 03/04/24 05:18 Sodium 137 Potassium 3.9 Chloride 106 Carbon Dioxide 25 BUN 20 Creatinine 1.47 H Glucose 100 H Calcium 9.7 (6) Hypertension Hypertension type: primary hypertension Qualified Code(s): I10 - Essential (primary) hypertension
[2024-03-05 06:07] LABS: BUN Creatinine Ratio 11.1 (10-20); Calcium 9.9 mg/dl (8.6-10.3); Creatinine Clr Calc Pharmacy 54.1 ml/min; Est GFR (African American) 54.3 ml/min; Est GFR (Non-African American) 46.8 ml/min; Magnesium 1.7 mg/dl (1.7-2.4); Potassium 3.7 mmol/L (3.5-5.1)
[2024-03-05 06:21] LABS: Hematocrit (blood only) 41.5 % (42.0-52.0); Hemoglobin 13.9 g/dl (14.0-18.0); Mean Corpuscular Hemoglobin 29.3 pg (25.0-34.0); Mean Corpuscular Hgb Conc 33.5 g/dL (32.0-36.0); Mean Corpuscular Volume 87.6 fL (80.0-100.0); Platelet Count 189 K/uL (130-400); RDW Coefficient of Variation 14.1 % (11.5-14.5); RDW Standard Deviation 45.1 fL (36.4-46.3); Red Blood Count 4.74 M/uL (4.70-6.10); White Blood Count 8.27 K/ul (4.8-10.8)
--- NOTE | 2024-03-05 09:36 | Surgery Progress Note ---
Date of Service March 05, 2024 Assessment & Plan (1) Small bowel obstruction due to postoperative adhesions: Plan: POD # 3 s/p ex lap, DANIAL avss no postop pain + return of bowel function Plan: advance to regular diet d/c IV fluids d/c abx continue medical management okay for discharge tomorrow am from surgical standpoint burn cd for patient and copy of records Admission and Anticipated Discharge Date Admission Date: March 02, 2024 Subjective feeling good no abdominal pain no n,v tolerated full liquids two bowel movements this am ambulating hallway Physical Exam Constitutional: WD/WN, vitals as above cooperative and comfortable; no acute distress and not ill appearing Respiratory: normal respiratory effort, lungs clear to auscultation Cardiovascular: RRR, no murmur, no edema Gastrointestinal (Abdomen): Inspection/Auscultation: abdomen normal to inspection and + abdominal surgical incision (covered with c/d/i dressing); abd omen not distended Percussion/Palpation: + abdomen tender (mild at incision site) and abdomen soft; no guarding, abdomen not rigid and abdomen not firm Skin: no rashes, warm and dry Psychiatric: A+Ox3, euthymic affect Results & Data Vital Signs (Past 12 Hours) Vital Signs Temp Pulse Pulse Resp BP Pulse Ox O2 Del Method 03/05/24 08:08 36.3 C L 68 18 126/87 94 Room Air 03/05/24 07:40 58 L 03/05/24 03:05 36.8 C 60 18 147/88 H 94 Room Air 03/04/24 23:20 53 L 03/04/24 22:36 36.6 C 55 L 18 154/91 H 95 Room Air Laboratory Results 03/05/24 Range/Units 05:24 WBC 8.27 (4.8-10.8) K/ul RBC 4.74 (4.70-6.10) M/uL Hgb 13.9 L (14.0-18.0) g/dl Hct 41.5 L (42.0-52.0) % MCV 87.6 (80.0-100.0) fL MCH 29.3 (25.0-34.0) pg MCHC 33.5 (32.0-36.0) g/dL RDW Std Deviation 45.1 (36.4-46.3) fL RDW Coeff of Sushil 14.1 (11.5-14.5) % Plt Count 189 (130-400) K/uL MPV 11.0 (9.4-12.4) fL Sodium 138 (136-145) mmol/L Potassium 3.7 (3.5-5.1) mmol/L Chloride 106 (98-107) mmol/L Carbon Dioxide 25 (21-32) mmol/L Anion Gap 7 (3-11) BUN 16 (6-23) mg/dl Creatinine 1.44 H (0.6-1.4) mg/dl Est Cr Clr Drug Dosing 54.1 ml/min Est GFR ( Amer) 54.3 ml/min Est GFR (Non-Af Amer) 46.8 ml/min BUN/Creatinine Ratio 11.1 (10-20) Glucose 97 (70-99(Fasting)) mg/dl Calcium 9.9 (8.6-10.3) mg/dl Magnesium 1.7 (1.7-2.4) mg/dl
--- NOTE | 2024-03-05 16:22 | Hospitalist Progress Note ---
Date of Service March 05, 2024 Assessment & Plan (1) Small bowel obstruction due to postoperative adhesions: Plan: Patient is a 78-year-old gentleman with history of paroxysmal atrial fibrillation not on anticoagulation but does have a Watchman device with a histo ry of chronic sinus bradycardia and hypertension presents to the emergency room with acute abdominal pain and imaging consistent with a small bowel obstruction. Small bowel obstruction due to postoperative adhesions S/P Exploratory Laparotomy, Reduction of closed loop obstruction, Lysis of adhesions by on 03/03/24 --CT ABD:There are a few dilated inflamed loops of ileum within the right lower quadrant with two apparent transition points. Findings are suspicious for an internal hernia with possible closed-loop obstruction. Surgical consultation is needed. No pneumatosis or pneumoperitoneum. Right nephrectomy. -- Continue IV fluids, pain control --Empirically Zosyn discontinued Appreciate surgery input Continue wound care Advance to regular diet Ambulating with no issues Plan to discharge once cleared by surgery (2) Sinus bradycardia, chronic: Plan: Sinus bradycardia Monitor (3) Paroxysmal atrial fibrillation: Plan: S/P watchman's procedure Continue Plavix (4) Chronic renal failure (CRF), stage 3a: Plan: H/O solitary kidney Monitor renal function Avoid nephrotoxic agents as able (5) Presence of Watchman left atrial appendage closure device: Plan: As above (6) Hypertension: Plan: Continue amlodipine, losartan Monitor BP DVT Px: SCDs Ambulating CODE STATUS Full code Admission and Anticipated Discharge Date Admission Date: March 02, 2024 Subjective Patient is seen and examined at bedside Doing well Ambulating in hallways with no issues Tolerating diet, denies any pain Had bowel movement today Denies any chest pain, dyspnea, dizziness, nausea, vomiting Review of Systems Review of Systems: All systems reviewed & are unremarkable except as noted in Subjective Physical Exam Physical Exam: Physical Exam: Vitals signs as noted above General Appearance:Moderately built and nourished, no apparent distress Head: normocephalic, Atraumatic Eyes: normal inspection, EOMI Neck: supple, Trachea midline Respiratory/Chest: Normal breath sounds, CTA, No accessory muscle use Cardiovascular: S1, S2, No murmur Abdomen/GI:Soft, Non tender, Bowel sounds present, +Surgical dressing Extremities/Musculoskeletal:normal inspection, Trace pedal edema Neurologic/Psych:AAOX3, grossly no focal neurological deficits Skin: normal color, warm Results & Data Results & Data Vital Signs (Past 12 Hours) Vital Signs Temp Pulse Pulse Resp BP Pulse Ox O2 Del Method 03/05/24 16:06 36.8 C 67 18 141/83 H 95 Room Air 03/05/24 14:57 61 03/05/24 11:15 36.8 C 60 18 149/85 H 97 Room Air 03/05/24 08:08 36.3 C L 68 18 126/87 94 Room Air 03/05/24 07:40 58 L Laboratory Results Short CBC 03/05/24 Range/Units 05:24 WBC 8.27 (4.8-10.8) K/ul Hgb 13.9 L (14.0-18.0) g/dl Hct 41.5 L (42.0-52.0) % Plt Count 189 (130-400) K/uL BMP 03/05/24 05:24 Sodium 138 Potassium 3.7 Chloride 106 Carbon Dioxide 25 BUN 16 Creatinine 1.44 H Glucose 97 Calcium 9.9 (6) Hypertension Hypertension type: primary hypertension Qualified Code(s): I10 - Essential (primary) hypertension
[2024-03-06 06:53] LABS: BUN Creatinine Ratio 13.8 (10-20); Calcium 9.9 mg/dl (8.6-10.3); Creatinine Clr Calc Pharmacy 59.5 ml/min; Est GFR (African American) 61.4 ml/min; Potassium 3.8 mmol/L (3.5-5.1)
--- NOTE | 2024-03-06 09:11 | Surgery Progress Note ---
Date of Service March 06, 2024 Assessment & Plan (1) Small bowel obstruction due to postoperative adhesions: Plan: discharge per medical team instructions in chart F/U with physicians at home Admission and Anticipated Discharge Date Admission Date: March 02, 2024 Subjective no complaints Review of Systems Constitutional: no fever and no chills Gastrointestinal: no abdominal pain Physical Exam Constitutional: WD/WN, vitals as above Gastrointestinal (Abdomen): Inspection/Auscultation: abdomen normal to inspection, + abdomen distended and + abdominal surgical incision Results & Data Vital Signs (Past 12 Hours) Vital Signs Temp Pulse Pulse Resp BP Pulse Ox O2 Del Method 03/06/24 08:21 36.5 C 85 17 138/87 94 Room Air 03/06/24 07:14 61 03/06/24 03:07 36.6 C 90 18 154/88 H 94 Room Air 03/06/24 00:42 60 03/05/24 22:34 36.8 C 61 18 154/86 H 95 Room Air
--- NOTE | 2024-03-06 09:37 | Hospitalist Progress Note ---
Date of Service March 06, 2024 Assessment & Plan (1) Small bowel obstruction due to postoperative adhesions: Plan: Patient is a 78-year-old gentleman with history of paroxysmal atrial fibrillation not on anticoagulation but does have a Watchman device with a histo ry of chronic sinus bradycardia and hypertension presents to the emergency room with acute abdominal pain and imaging consistent with a small bowel obstruction. Small bowel obstruction due to postoperative adhesions S/P Exploratory Laparotomy, Reduction of closed loop obstruction, Lysis of adhesions by on 03/03/24 --CT ABD:There are a few dilated inflamed loops of ileum within the right lower quadrant with two apparent transition points. Findings are suspicious for an internal hernia with possible closed-loop obstruction. Surgical consultation is needed. No pneumatosis or pneumoperitoneum. Right nephrectomy. -- Discontinue IV fluids --Empirically Zosyn discontinued Appreciate surgery input Continue wound care Tolerating regular diet Appreciate surgery help Pain is well-controlled Plan to be discharged home today (2) Sinus bradycardia, chronic: Plan: Sinus bradycardia Monitor (3) Paroxysmal atrial fibrillation: Plan: S/P watchman's procedure Continue Plavix (4) Chronic renal failure (CRF), stage 3a: Plan: H/O solitary kidney Monitor renal function Avoid nephrotoxic agents as able (5) Presence of Watchman left atrial appendage closure device: Plan: As above (6) Hypertension: Plan: Continue amlodipine, losartan Monitor BP DVT Px: SCDs Ambulating CODE STATUS Full code Disposition Home Admission and Anticipated Discharge Date Admission Date: March 02, 2024 Subjective Patient is seen and examined at bedside Offers no complaints Discussed with surgery today Denies any chest pain, dyspnea, dizziness, nausea, vomiting, abd pain Tolerating diet Plan to be discharged home today Review of Systems Review of Systems: All systems reviewed & are unremarkable except as noted in Subjective Physical Exam Physical Exam: Physical Exam: Vitals signs as noted above General Appearance:Moderately built and nourished, no apparent distress Head: normocephalic, Atraumatic Eyes: normal inspection, EOMI Neck: supple, Trachea midline Respiratory/Chest: Normal breath sounds, CTA, No accessory muscle use Cardiovascular: S1, S2, No murmur Abdomen/GI:Soft, Non tender, Bowel sounds present, +Surgical dressing Extremities/Musculoskeletal:normal inspection, Trace pedal edema Neurologic/Psych:AAOX3, grossly no focal neurological deficits Skin: normal color, warm Results & Data Results & Data Vital Signs (Past 12 Hours) Vital Signs Temp Pulse Pulse Resp BP Pulse Ox O2 Del Method 03/06/24 08:21 36.5 C 85 17 138/87 94 Room Air 03/06/24 07:14 61 03/06/24 03:07 36.6 C 90 18 154/88 H 94 Room Air 03/06/24 00:42 60 03/05/24 22:34 36.8 C 61 18 154/86 H 95 Room Air Laboratory Results [facility] 03/06/24 06:05 Sodium 138 Potassium 3.8 Chloride 106 Carbon Dioxide 24 BUN 18 Creatinine 1.30 Glucose 98 Calcium 9.9 (6) Hypertension Hypertension type: primary hypertension Qualified Code(s): I10 - Essential (primary) hypertension
--- NOTE | 2024-03-06 09:47 | Discharge Summary ---
Date of Service March 06, 2024 Admission HPI Per Admitting Provider Patient 78-year-old gentleman visiting the area from [place] for hunting trip. Went to bed last evening feeling well woke up early this morning with severe abdominal pain some nausea and even some diarrhea. Due to his severe pain and came to the emergency room for evaluation. In the emergency room laboratory workup was essentially at his reported baseline. Imaging was consistent with a small bowel obstruction with 2 transition's points. Imaging was reviewed with surgery who recommended that patient may need more immediate surgical intervention. I was requested to the hospital medicine group to see the patient preoperatively to help coordinate admission and evaluate his medical history. At time of my evaluation the patient's pain is fairly well-controlled. He denies any chest pain or shortness of breath. He does have a history of paroxysmal atrial fibrillation for which a Watchman device was placed. He is not on any controlling medication. He reports that his atrial fibrillation is very intermittent and brief. He has chronic sinus bradycardia as his baseline and is asymptomatic. Prior to this morning he denies any fever or chills, no chest pain or shortness of breath, no abdominal pain. He does report that he has had issues with his bowels ever since his nephrectomy. He states that often times seems as though he has to have 2 bowel movements in the morning and has to, lie on each side, have his bowels work the stool through. He is not on any regular bowel regimen. He has never had a small bowel obstruction before. He does have a significant history of multiple renal calculi. That has resolved after excision of a benign kidney mass which ended up him requiring a full total nephrectomy. He does have some chronic renal dysfunction but reports that overall his renal function is stable. Admission Exam Per Admitting Provider Constitutional: Alert, mildly ill in appearance, nontoxic HEENT: Mucous membranes moist. Sclera clear Neck: Soft, no adenopathy Lungs: Clear to auscultation, decreased, no wheezes rales or rhonchi CV: S1-S2, regular, bradycardic Abdomen: Diffusely tender, guarding in the right lower quadrant, no rigidity, distended, hypoactive, high-pitched bowel sounds, Extremities: No significant edema Musculoskeletal: No significant joint tenderness Neuro: No focal deficits Psych: Cooperative, normal mood Principal Diagnosis Small bowel obstruction Sinus bradycardia Discharge Data Allergies Allergy/AdvReac Type Severity Reaction Status Date / Time No Known Allergies Allergy Unverified 03/02/24 08:12 Consultations 03/02/24 11:40 Consult General Surgery Routine 03/05/24 09:35 Burn CD for patient Routine Procedures Performed Operation Date: 03/02/24 09:00 Actual Procedures p Exploratory Laparotomy, Reduction of closed loop obstruction, Lysis of adhesions(Not Applicable) - Jonathan Oglesby MD Ordered Studies Laboratory Results WBC 8.27 K/ul (4.8-10.8) 03/05/24 05: RBC 4.74 M/uL (4.70-6.10) 03/05/24 05:24 Hgb 13.9 g/dl (14.0-18.0) L 03/05/24 05: Hct 41.5 % (42.0-52.0) L 03/05/24 05: MCV 87.6 fL (80.0-100.0) 03/05/24 05:24 MCH 29.3 pg (25.0-34.0) 03/05/24 05:24 MCHC 33.5 g/dL (32.0-36.0) 03/05/24 05:24 RDW Std Deviation 45.1 fL (36.4-46.3) 03/05/24 05:24 RDW Coeff of Sushil 14.1 % (11.5-14.5) 03/05/24 05: Plt Count 189 K/uL (130-400) 03/05/24 05:24 MPV 11.0 fL (9.4-12.4) 03/05/24 05:24 Immature Gran % (Auto) 0.2 % 03/02/24 07:03 Neut % (Auto) 75.9 % 03/02/24 07:03 Lymph % (Auto) 16.0 % 03/02/24 07:03 Branch % (Auto) 6.0 % 03/02/24 07:03 Eos % (Auto) 1.3 % 03/02/24 07:03 Baso % (Auto) 0.6 % 03/02/24 07:03 Neut # (Auto) 6.23 K/uL (1.40-6.50) 03/02/24 07:03 Lymph # (Auto) 1.31 K/uL (1.20-3.40) 03/02/24 07:03 Branch # (Auto) 0.49 K/uL (0.11-0.59) 03/02/24 07:03 Eos # (Auto) 0.11 K/uL (0.00-0.50) 03/02/24 07:03 Baso # (Auto) 0.05 K/uL (0.00-0.20) 03/02/24 07:03 Immature Gran # (Auto) 0.02 K/uL (0.01-0.20) 03/02/24 07:03 Sodium 138 mmol/L (136-145) 03/06/24 06:05 Potassium 3.8 mmol/L (3.5-5.1) 03/06/24 06:05 Chloride 106 mmol/L (98-107) 03/06/24 06:05 Carbon Dioxide 24 mmol/L (21-32) 03/06/24 06:05 Anion Gap 8 (3-11) 03/06/24 06:05 BUN 18 mg/dl (6-23) 03/06/24 06:05 Creatinine 1.30 mg/dl (0.6-1.4) 03/06/24 06:05 Est Cr Clr Drug Dosing 59.5 ml/min 03/06/24 06:05 Est GFR ( Amer) 61.4 ml/min 03/06/24 06:05 Est GFR (Non-Af Amer) 53.0 ml/min 03/06/24 06:05 BUN/Creatinine Ratio 13.8 (10-20) 03/06/24 06:05 Glucose 98 mg/dl (70-99(Fasting)) 03/06/24 06:05 Lactate 1.3 mmol/L (0.4-2.0) 03/02/24 07:57 Calcium 9.9 mg/dl (8.6-10.3) 03/06/24 06:05 Magnesium 1.7 mg/dl (1.7-2.4) 03/05/24 05:24 Total Bilirubin 0.8 mg/dl (0.2-1.0) 03/03/24 04:30 AST 16 U/L (13-39) 03/03/24 04:30 ALT 13 U/L (7-52) 03/03/24 04:30 Alkaline Phosphatase 83 U/L (34-104) 03/03/24 04:30 Total Protein 6.5 gm/dl (6.0-8.3) 03/03/24 04:30 Albumin 3.8 gm/dl (3.4-5.0) 03/03/24 04:30 Globulin 2.7 gm/dl (2.5-4.0) 03/03/24 04:30 Albumin/Globulin Ratio 1.4 (0.9-2) 03/03/24 04:30 Lipase 8 U/L (11-82) L 03/02/24 07:03 Impressions Abdomen/Pelvis CT 03/02/24 07:[address] WITHOUT CONTRAST CT DOSE: 1391.42 mGy.cm HISTORY: Acute right lower quadrant abdominal pain rlq and generalized abd pain (solitary kidney) TECHNIQUE: Multiaxial CT images of the abdomen and pelvis were performed without contrast. A dose lowering technique was utilized adhering to the principles of ALARA. COMPARISON STUDY: None. FINDINGS: No acute lower thoracic abnormality. Mild bibasilar atelectasis versus scarring. There is no free air. The unenhanced spleen, pancreas, gallbladder and adrenal glands are unremarkable. Scattered hepatic cysts measure up to approximately 3 cm within the right hepatic lobe. Additional subcentimeter h epatic hypodensities are too small to characterize. Postoperative changes within the right retroperitoneum compatible with prior nephrectomy. Compensatory hypertrophy of the left kidney. Left-sided perinephric stranding with parenchymal and renal sinus cysts. No renal or ureteral calculi or hydronephrosis. Compressed draining bladder with wall thickening. Prostatomegaly small fat filled inguinal hernias are noted. No abdominal aortic aneurysm or lymphadenopathy. Colonic diverticulosis. Dilated inflamed loops of ileum within the abdominal right lower quadrant measure up to approximately 3.7 cm, demonstrating areas of circumferential wall thickening with intraluminal edema and trace ascites. There are at least 2 sites of transitioning decompressed small bowel with mild twisting of the mesentery. There is an adjacent fat filled right lateral abdominal wall hernia on image 198 with diastases of 11 mm. No bowel extension into the hernia sac. The appendix is not clearly identified. No acute fracture. IMPRESSION: 1. There are a few dilated inflamed loops of ileum within the right lower quadrant with two apparent transition points. Findings are suspicious for an internal hernia with possible closed-loop obstruction. Surgical consultation is needed. 2. No pneumatosis or pneumoperitoneum. 3. Right nephrectomy. 4. Additional findings as above. ACT 112: Negative or not required by law. The above report was generated using voice recognition software. It may contain grammatical, syntax or spelling errors. Electronically signed by: Atif Funes M.D. 03/02/2024 8:18 AM Hospital Course (1) Small bowel obstruction due to postoperative adhesions: Patient is a 78-year-old gentleman with history of paroxysmal atrial fibrillation not on anticoagulation but does have a Watchman device with a history of chronic sinus bradycardia and hypertension presents to the emergency room with acute abdominal pain and imaging consistent with a small bowel obstruction. Small bowel obstruction due to postoperative adhesions S/P Exploratory Laparotomy, Reduction of closed loop obstruction, Lysis of adhesions by on 03/03/24 --CT ABD:There are a few dilated inflamed loops of ileum within the right lower quadrant with two apparent transition points. Findings are suspicious for an internal hernia with possible closed-loop obstruction. Surgical consultation is needed. No pneumatosis or pneumoperitoneum. Right nephrectomy. -- Discontinue IV fluids --Empirically Zosyn discontinued Appreciate surgery input Continue wound care Tolerating regular diet Appreciate surgery help Pain is well-controlled Plan to be discharged home today (2) Sinus bradycardia, chronic: Sinus bradycardia Monitor (3) Paroxysmal atrial fibrillation: S/P watchman's procedure Continue Plavix (4) Chronic renal failure (CRF), stage 3a: H/O solitary kidney Monitor renal function Avoid nephrotoxic agents as able (5) Presence of Watchman left atrial appendage closure device: As above (6) Hypertension: Continue amlodipine, losartan Monitor BP DVT Px: SCDs Ambulating CODE STATUS Full code Disposition Home Total Time Total Time Spent Total Time Spent (In Minutes): 56 minutes Discharge Plan Discharge Items Patient Disposition: Home - Self-Care Reason For Visit: SBO Discharge Diagnosis: Small bowel obstruction Sinus bradycardia Activity: Per Instructions section Exercise/Sports: Wait until after follow-up appointment Non-emergency contact: Primary Care Provider and Surgeon Call non-emergency contact if: you have any medication questions, your symptoms worsen, your pain is concerning for you and you have a fever Follow-up/Referrals: PCP,NO [Primary Care Provider] - Diet: Regular Addtl Attending Provider Instructions: Follow-up with your primary care physician in 1 week Follow-up with your surgeon as instructed Seek immediate medical attention if your symptoms reoccur or worsen Please take all medications as instructed on discharge list below. Please call if you have any questions or problems. You can reach a [facility] hospitalist on duty at [facility] 24 hours a day by calling [phone] [facility] Finance Clerk Provider Instructions: Post-Surgical ~Discharge Instructions Activity Recommendations: - lifting limitation: (10 pounds for 6 weeks), - exercise/sex/sports limit: (nonstrenuous for 6 weeks), - driving or machine use limit: (none for 1 week) - Shower/bathe limit: (may shower, no submerging incision underwater for 2 weeks) Diet: - Resume previous diet SPECIAL CARE INSTRUCTIONS: - May shower.. Let water run over area and pat dry. - surgical chepe should be removed 14 days after surgery - Call the surgeon's office with any questions or concerns - - (ex. temperature higher than 101 degrees F, excessive bleeding or pain). MEDICATIONS: - Resume previous medications unless instructed otherwise by your surgeon. - Extra strength Tylenol as needed for pain. FOLLOW UP VISIT: - If not already scheduled, please call the office to schedule a two week follow-up appointment. Office number Pending Studies at Discharge: No Stand-Alone Forms: My [facility], Smoking Cessation Medications and DC Order Prescriptions: Continued clopidogrel [Plavix] 75 mg Tablet 75 mg PO QAM amlodipine 10 mg Tablet 10 mg PO HS allopurinol 300 mg Tablet 300 mg PO QAM losartan 100 mg Tablet 100 mg PO QAM rosuvastatin 5 mg Tablet 5 mg PO [id number] Rx Instructions: Mon/Wed/Fri Discharge Orders: Discharge Order (Routine); Ordered 03/06/24 Ordered By: Eric Loera Admission Data Admit Date/Time: 03/02/24 09:38 Attending Provider: Zunilda Ayoub Admit Provider: Ryan Gonzalez Primary Care Provider: PCP,NO Other Providers: Jonathan Oglesby
== END 2024-03-06 10:53 | disposition home or self-care (01) | DRG 337 ==
LOC: ED 06:44 → OR 09:33 → 4W 09:33 → SUATTDRO 09:38 → 4W 09:38